=== PATIENT | female | born 1940 ===

== ENCOUNTER 2017-05-01 13:58 | Emergency (ER) | payer MEDICARE ==
[2017-05-01 14:24] VITALS: TEMP 97.8
[2017-05-01] MEDS ORDERED: Magnesium Citrate Oral SOL (300 ml) PO STA (15:56)
[2017-05-01] MEDS ORDERED: Magnesium Citrate Oral SOL (300 ml) ONE (16:09)
--- NOTE | 2017-05-01 17:11 | C.PDOC ---
History Of Present Illness 76 yr old female with PMhx of hysterectomy (more then 40 years ago), presents to the ER with complaints of lower abdominal pain and constipation. Patient denies fever, nausea, vomiting, dysuria, back pain, weakness or numbness. Time Seen by Provider: 05/01/17 15:16 Chief Complaint (Nursing): GI Problem History Per: Patient History/Exam Limitations: no limitations Onset/Duration Of Symptoms: Days (5) Current Symptoms Are (Timing): Still Present Past Medical History Reviewed: Historical Data, Nursing Documentation, Vital Signs Vital Signs: Last Vital Signs Temp 97.8 F 05/01/17 14:20 Pulse 80 05/01/17 14:20 Resp 16 05/01/17 14:20 BP 114/72 05/01/17 14:20 Pulse Ox 96 05/01/17 17:13 - Medical History PMH: Alzheimer's Disease, HTN Surgical History: Appendectomy Family History: States: No Known Family Hx - Social History Hx Alcohol Use: No Hx Substance Use: No - Immunization History Hx Tetanus Toxoid Vaccination: No Hx Influenza Vaccination: No Hx Pneumococcal Vaccination: No Review Of Systems Except As Marked, All Systems Reviewed And Found Negative. Constitutional: Negative for: Fever Gastrointestinal: Positive for: Abdominal Pain (Lower abdominal), Constipation. Negative for: Nausea, Vomiting Genitourinary: Negative for: Dysuria Musculoskeletal: Negative for: Back Pain Neurological: Negative for: Weakness, Numbness Physical Exam - Physical Exam Appears: Non-toxic, No Acute Distress Skin: Warm, Dry, No Rash Head: Atraumatic, Normacephalic Oral Mucosa: Moist Cardiovascular: Rhythm Regular, No Murmur Respiratory: Normal Breath Sounds, No Rales, No Rhonchi, No Stridor, No Wheezing Gastrointestinal/Abdominal: Soft, No Tenderness, Distention (Mild), No Rebound, Other ((+) Below the umbilicus, a well healed surgical scar) Back: Normal Inspection, No CVA Tenderness Extremity: Normal ROM, No Swelling Neurological/Psych: Oriented x3, Normal Speech, Normal Motor, Normal Sensation ED Course And Treatment O2 Sat by Pulse Oximetry: 96 (RA) Pulse Ox Interpretation: Normal Progress Note: PLAN: X-Ray - Obstructive Series, Magnesium Citrate PO & Colace PO. Disposition Counseled Patient/Family Regarding: Diagnosis, Need For Followup, Rx Given - Disposition Referrals: [facility] [Outside] Disposition: HOME/ ROUTINE Disposition Time: 17:30 Condition: STABLE Additional Instructions: ASHLIE GOLYMENTE HASTA QUE TENGAS MOVIMIENTO INTESTINAL DANIEL 8 ONZAS / 1 TAZA CADA 20 MIN. HASTA QUE TENGA MOVIMIENTO INTESTINAL, LUEGO DEJE DE MEDICAR REGAN MUCHOS FLUIDOS Y AUMENTA LA FIBRA EN MCMILLAN DIETA REGRESE AL MAURICE DE EMERGENCIA SI LOS SNTOMAS EMPEORAN Instructions: Constipation (ED), High Fiber Diet (ED) Forms: [employer] (Georgian) Print Language: MONGOLIAN - POA Present On Arrival: None - Clinical Impression Clinical Impression: Constipation - Scribe Statement The provider has reviewed the documentation as recorded by the Scribe Lucero Brice Provider Attestation: All medical record entries made by the Scribe were at my direction and personally dictated by me. I have reviewed the chart and agree that the record accurately reflects my personal performance of the history, physical exam, medical decision making, and the department course for this patient. I have also personally directed, reviewed, and agree with the discharge instructions and disposition.
[2017-05-01] MEDS ORDERED: Peg-Electrolyte Oral Soln 4L (Golytely) PO ONE (17:13)
[2017-05-01 17:59] VITALS: BP 118/72; PULSE 78; RESP 14; O2SAT 100
--- NOTE | 2017-05-01 19:14 | RAD ---
PROCEDURE: Radiographs of the chest and abdomen (obstructive series) HISTORY: constipation COMPARISON: No prior. TECHNIQUE: AP radiograph of the chest, with upright and supine radiographs of the abdomen. FINDINGS: CHEST: Minor bibasilar atelectasis and or scarring. No gross free intraperitoneal air seen under the diaphragmatic surfaces. ABDOMEN AND PELVIS: Nonobstructive/nonspecific bowel gas pattern. Moderate amount of stool seen throughout the colon consistent with fecal retention/constipation. Incidental note made of spina bifida occulta involving what. Calcifications seen at over the inferior true pelvis bilaterally. May represent L5 segment. IMPRESSION: Mild bibasilar atelectasis
== END 2017-05-01 18:22 | disposition home or self-care (01) ==
LOC: C.ER 13:58
DX: K59.00 Constipation, unspecified (principal)